=== PATIENT | female | born 1970 ===

== ENCOUNTER 2017-06-19 13:34 | Inpatient (IN) | payer OTHER ==
[~2017-06-19] VITALS: Ht 160 cm; Wt 100.8 kg
[2017-06-19 15:08] LABS: BASOPHILS # (AUTO) 0.04 x10^3/uL (0-0.1); BASOPHILS % (AUTO) 1 % (0-1); EOSINOPHILS # (AUTO) 0.33 x10^3/uL (0-0.4); EOSINOPHILS % (AUTO) 5 % (1-7); LYMPHOCYTES # (AUTO) 1.58 x10^3/uL (1-3.4); LYMPHOCYTES % (AUTO) 22 % (22-44); MD NO; MEAN CORPUSCULAR HEMOGLOBIN 31.1 pg (27.0-34.8); MEAN CORPUSCULAR HGB CONC 33.6 g/dL (32.4-35.8); MEAN CORPUSCULAR VOLUME 92.4 fL (80-100); MONOCYTES % (AUTO) 6 % (2-9); NEUTROPHILS # (AUTO) 4.94 x10^3/uL (1.8-6.8); NEUTROPHILS % (AUTO) 68 % (42-75); PLATELET COUNT 327 x10^3/uL (130-400); RED BLOOD COUNT 3.27 x10^6/uL (3.82-5.3); RED CELL DISTRIBUTION WIDTH 13.2 % (9.6-15.2)
[2017-06-19] MEDS ORDERED: ERGO2000 PO (15:11)
[2017-06-19] MEDS ORDERED: HYDR-3240 PO (15:11)
[2017-06-19] MEDS ORDERED: FOLI0.8T3 PO (15:11)
[2017-06-19] MEDS ORDERED: LOSA100T6 PO (15:11)
[2017-06-19] MEDS ORDERED: ZOLP-413 PO (15:11)
[2017-06-19 15:17] LABS: ALBUMIN 3.5 g/dL (3.4-5.0); ANION GAP 8 mmol/L (5-15); CALCIUM 9.1 mg/dL (8.5-10.1); CHLORIDE 113 mmol/L (98-107)
[2017-06-19 15:18] LABS: CREATININE 4.21 mg/dL (0.55-1.02)
[2017-06-19] MEDS ORDERED: SODIUM CHLORIDE FLUSH 10ML SYR IVF ONE (16:30)
[2017-06-19] MEDS ORDERED: BISACODYL 10 MG SUPP PR PRN (17:00)
[2017-06-19] MEDS ORDERED: POLYETHYLENE GLYCOL 17 GM PACKET PO PRN (17:00)
[2017-06-19] MEDS ORDERED: ACETAMINOPHEN 325 MG TABLET PO PRN (17:00)
[2017-06-19] MEDS ORDERED: hydrALAzine 20 MG/ML, 1ML IVPush PRN (17:00)
[2017-06-19] MEDS ORDERED: LABETALOL 5MG/ML, 20ML IVPush PRN (17:00)
[2017-06-19] MEDS ORDERED: DOCUSATE 100 MG CAPSULE PO PRN (17:00)
[2017-06-19] MEDS ORDERED: ONDANSETRON 2MG/ML, 2ML IVPush PRN (17:00)
[2017-06-19] MEDS ORDERED: HYDROcodone/APAP 5/325 TABLET PO PRN (17:30)
[2017-06-19 18:36] LABS: MICROSCOPIC AUTO
[2017-06-19 18:40] LABS: CULTURE INDICATED? YES
[2017-06-19 18:43] LABS: CREATININE,URINE RANDOM 93.7 mg/dL
[2017-06-19] MEDS: LOSARTAN 50MG TABLET PO SCH (20:19)
[2017-06-19] MEDS: FOLIC ACID 1 MG TABLET PO SCH (20:19)
[2017-06-19] MEDS: HEPARIN 5,000 UNITS/ML, 1ML SQ SCH (20:20)
[2017-06-19] MEDS: SODIUM CHLORIDE FLUSH 10ML SYR IVF SCH (20:20)
[2017-06-19] MEDS: CHOLECALCIFEROL 1,000 UNIT TABLET PO SCH (20:20)
[2017-06-19] MEDS: ZOLPIDEM 5MG TABLET PO PRN (20:20)
[2017-06-19 20:26] VITALS: BP 156/85
[2017-06-20 02:00] VITALS: BP 111/76
[2017-06-20] MEDS: HEPARIN 5,000 UNITS/ML, 1ML SQ SCH ×3 (05:00→21:01)
[2017-06-20 05:37] LABS: BASOPHILS # (AUTO) 0.04 x10^3/uL (0-0.1); BASOPHILS % (AUTO) 1 % (0-1); EOSINOPHILS # (AUTO) 0.42 x10^3/uL (0-0.4); EOSINOPHILS % (AUTO) 7 % (1-7); LYMPHOCYTES # (AUTO) 1.97 x10^3/uL (1-3.4); LYMPHOCYTES % (AUTO) 32 % (22-44); MD NO; MEAN CORPUSCULAR HEMOGLOBIN 31.9 pg (27.0-34.8); MEAN CORPUSCULAR HGB CONC 34.8 g/dL (32.4-35.8); MEAN CORPUSCULAR VOLUME 91.5 fL (80-100); MEAN PLATELET VOLUME 7.8 fL (7.4-10.4); MONOCYTES # (AUTO) 0.49 x10^3/uL (0.2-0.8); MONOCYTES % (AUTO) 8 % (2-9); NEUTROPHILS # (AUTO) 3.18 x10^3/uL (1.8-6.8); NEUTROPHILS % (AUTO) 52 % (42-75); PLATELET COUNT 277 x10^3/uL (130-400); RED BLOOD COUNT 2.89 x10^6/uL (3.82-5.3); RED CELL DISTRIBUTION WIDTH 13.1 % (9.6-15.2)
[2017-06-20 05:52] LABS: CALCIUM 8.4 mg/dL (8.5-10.1); CHLORIDE 113 mmol/L (98-107)
[2017-06-20 05:55] LABS: ANION GAP 10 mmol/L (5-15); CREATININE 4.15 mg/dL (0.55-1.02)
[2017-06-20 07:25] VITALS: BP 140/86
[2017-06-20] MEDS: SODIUM CHLORIDE FLUSH 10ML SYR IVF SCH ×2 (08:36→21:00)
[2017-06-20 14:21] VITALS: BP 137/80
[2017-06-20 20:30] VITALS: BP 144/87
[2017-06-20] MEDS: LOSARTAN 50MG TABLET PO SCH (21:01)
[2017-06-20] MEDS: FOLIC ACID 1 MG TABLET PO SCH (21:01)
[2017-06-20] MEDS: ZOLPIDEM 5MG TABLET PO PRN (21:01)
[2017-06-20] MEDS: CHOLECALCIFEROL 1,000 UNIT TABLET PO SCH (21:01)
[2017-06-21 03:15] VITALS: BP 104/66
[2017-06-21 05:02] LABS: BASOPHILS # (AUTO) 0.05 x10^3/uL (0-0.1); BASOPHILS % (AUTO) 1 % (0-1); EOSINOPHILS # (AUTO) 0.39 x10^3/uL (0-0.4); EOSINOPHILS % (AUTO) 5 % (1-7); LYMPHOCYTES # (AUTO) 2.02 x10^3/uL (1-3.4); LYMPHOCYTES % (AUTO) 28 % (22-44); MD NO; MEAN CORPUSCULAR HEMOGLOBIN 31.3 pg (27.0-34.8); MEAN CORPUSCULAR HGB CONC 34.1 g/dL (32.4-35.8); MEAN CORPUSCULAR VOLUME 91.8 fL (80-100); MEAN PLATELET VOLUME 7.9 fL (7.4-10.4); MONOCYTES # (AUTO) 0.42 x10^3/uL (0.2-0.8); MONOCYTES % (AUTO) 6 % (2-9); NEUTROPHILS # (AUTO) 4.27 x10^3/uL (1.8-6.8); NEUTROPHILS % (AUTO) 60 % (42-75); PLATELET COUNT 270 x10^3/uL (130-400); RED BLOOD COUNT 3.01 x10^6/uL (3.82-5.3); RED CELL DISTRIBUTION WIDTH 13.4 % (9.6-15.2)
[2017-06-21 05:27] LABS: ANION GAP 10 mmol/L (5-15); CALCIUM 8.5 mg/dL (8.5-10.1); CHLORIDE 109 mmol/L (98-107)
[2017-06-21 05:28] LABS: CREATININE 4.08 mg/dL (0.55-1.02)
[2017-06-21] MEDS: HEPARIN 5,000 UNITS/ML, 1ML SQ SCH (05:41)
[2017-06-21 06:52] VITALS: BP 95/59
[2017-06-21] MEDS: SODIUM CHLORIDE FLUSH 10ML SYR IVF SCH (08:21)
== END 2017-06-21 12:30 | disposition home or self-care (01) | DRG 683 ==
LOC: ED 16:27 → EDIP 16:28 → ED 16:52 → 4EST 18:39 → DCLOUNGE 06-21 12:24
PROVIDERS: ADMIT Internal Medicine; ATTEND Internal Medicine
DX: N17.0 Acute kidney failure with tubular necrosis (principal); E11.22 Type 2 diabetes mellitus with diabetic chronic kidney disease; E11.65 Type 2 diabetes mellitus with hyperglycemia; N25.0 Renal osteodystrophy; I13.10 Hypertensive heart and chronic kidney disease without heart failure, with stage 1 through stage 4 chronic kidney disease, or unspecified chronic kidney disease; D63.8 Anemia in other chronic diseases classified elsewhere; M54.9 Dorsalgia, unspecified; N18.4 Chronic kidney disease, stage 4 (severe); G89.29 Other chronic pain; Z79.84 Long term (current) use of oral hypoglycemic drugs; Q61.2 Polycystic kidney, adult type; Z82.49 Family history of ischemic heart disease and other diseases of the circulatory system; Z83.3 Family history of diabetes mellitus; Z90.49 Acquired absence of other specified parts of digestive tract; Z88.6 Allergy status to analgesic agent; Z88.8 Allergy status to other drugs, medicaments and biological substances
CPT/HCPCS: 36415; 71045; 76770; 80048; 81001; 82040; 82306; 82436; 82570; 82728; 83540; 83550; 83735; 83880; 83970; 84100; 84133; 84300; 84466; 85025; 87086; 99285; J1644

== ENCOUNTER 2018-07-13 10:34 | Day surgery (SDC) | payer OTHER ==
[~2018-07-13] VITALS: Ht 158.8 cm; Wt 97.1 kg
[~2018-07-13 10:34] MED LIST: BUPIVACAINE/PF-EPI 0.5% 1:200K ONE; ERGO2000 PO; FOLI0.8T3 PO; HEPARIN 1,000 UNITS/ML, 10ML ONE; HYDR-3240 PO; LOSA100T14 PO; THROMBIN 5,000 UNIT VIAL TP ONE; ZOLP-413 PO
[2018-07-13] MEDS ORDERED: SODIUM CHLORIDE 0.9% 1,000 ML IV SCH (11:02)
[2018-07-13 11:29] LABS: HCG UR SG 1.011 (1.003-1.030)
[2018-07-13 11:54] VITALS: BP 124/84
[2018-07-13] MEDS ORDERED: MIDAZOLAM 1 MG/ML, 2ML ONE (11:54)
[2018-07-13] MEDS ORDERED: FENTANYL PF 100 MCG/2ML ONE ×2 (11:54→13:35)
[2018-07-13] MEDS ORDERED: SODI650T PO (11:54)
[2018-07-13] MEDS ORDERED: ONDANSETRON 2MG/ML, 2ML IV PRN (12:00)
[2018-07-13] MEDS ORDERED: MIDAZOLAM 1 MG/ML, 2ML IV PRN (12:00)
[2018-07-13] MEDS ORDERED: hydrALAzine 20 MG/ML, 1ML IV PRN (12:00)
[2018-07-13] MEDS ORDERED: ALBUTEROL/IPRATROPIUM 2.5MG/0.5MG, 3 ML NPPB PRN (12:00)
[2018-07-13] MEDS ORDERED: SCOPOLAMINE PATCH, 1.5MG PATCH.TD72 TD PRN (12:00)
[2018-07-13] MEDS ORDERED: HYDROmorphone 2 MG/ML, 1ML IVPush PRN (12:00)
[2018-07-13] MEDS ORDERED: OXYcodone 5 MG/5 ML ORAL.SOL UDC PO PRN (12:00)
[2018-07-13] MEDS ORDERED: PROMETHAZINE 25 MG/ML, 1ML IV PRN (12:00)
[2018-07-13] MEDS ORDERED: MEPERIDINE/PF 25MG/0.5ML IVPush PRN (12:00)
[2018-07-13] MEDS ORDERED: ACETAMINOPHEN 325 MG TABLET PO PRN (12:00)
[2018-07-13] MEDS ORDERED: CEFAZOLIN 1,000 MG ONE (12:16)
[2018-07-13] MEDS ORDERED: ROCURONIUM 10 MG/ML,10ML ONE (12:16)
[2018-07-13] MEDS ORDERED: PROPOFOL 10 MG/ML, 20ML ONE (12:16)
[2018-07-13] MEDS ORDERED: PHENYLEPHRINE 10 MG/ML ONE (12:16)
[2018-07-13] MEDS ORDERED: SUGAMMADEX 200 MG/2 ML IVPush ONE (12:16)
[2018-07-13] MEDS ORDERED: SUCCINYLCHOLINE 20 MG/ML, 10ML ONE (12:16)
[2018-07-13] MEDS ORDERED: DEXAMETHASONE 4 MG/ML, 5ML ONE (12:16)
[2018-07-13] MEDS ORDERED: ONDANSETRON 2MG/ML, 2ML ONE (12:16)
[2018-07-13] MEDS ORDERED: OXYcodone 5 MG/5 ML ORAL.SOL UDC ONE (13:18)
[2018-07-13] MEDS: FENTANYL PF 100 MCG/2ML IV PRN ×3 (13:35→13:50)
== END 2018-07-13 16:50 | disposition home or self-care (01) ==
LOC: OUT 10:34
PROVIDERS: ATTEND Surgery Vascular Surgery
DX: I12.0 Hypertensive chronic kidney disease with stage 5 chronic kidney disease or end stage renal disease (principal); E11.22 Type 2 diabetes mellitus with diabetic chronic kidney disease; N18.6 End stage renal disease; E66.9 Obesity, unspecified; Z68.38 Body mass index [BMI] 38.0-38.9, adult; Z79.4 Long term (current) use of insulin; Z88.8 Allergy status to other drugs, medicaments and biological substances
CPT/HCPCS: 36415; 36821; 49324; 80047; 81025; C1750; J0330; J0690; J1100; J1644; J2250; J2370; J2405; J2704; J3010; J7030

== ENCOUNTER 2021-02-12 08:22 | Day surgery (SDC) | payer MEDICARE, OTHER ==
[~2021-02-12] VITALS: Ht 157.5 cm; Wt 82.4 kg
[~2021-02-12 08:22] MED LIST changes: -BUPIVACAINE/PF-EPI 0.5% 1:200K ONE; +CALC0.25 PO; -HEPARIN 1,000 UNITS/ML, 10ML ONE; +HYDR-2214 PO; -HYDR-3240 PO; +MIDO5TAB9 PO; +PANT40TA6 PO; +ROPI1TAB4 PO; +SEVE800T8 PO; +SODI650T PO; -THROMBIN 5,000 UNIT VIAL TP ONE; +VANC1PLA9 IV
[2021-02-12] MEDS ORDERED: CHLORHEXIDINE 15 ML UDC PO ONE (10:00)
[2021-02-12] MEDS ORDERED: SODIUM CHLORIDE 0.9% 1,000 ML IV SCH (10:00)
[2021-02-12 10:02] VITALS: BP 115/82
[2021-02-12] MEDS ORDERED: ZOLP10TA PO (10:12)
[2021-02-12] MEDS ORDERED: ROPI2TAB8 PO (10:12)
[2021-02-12 11:18] LABS: ALANINE AMINOTRANSFERASE 21 U/L (12-78); ALBUMIN 3.2 g/dL (3.4-5.0); ANION GAP 11 mmol/L (5-15); CALCIUM 10.3 mg/dL (8.5-10.1); CHLORIDE 100 mmol/L (98-107)
[2021-02-12 11:20] LABS: ALKALINE PHOSPHATASE 69 U/L (45-117); BILIRUBIN,TOTAL 0.4 mg/dL (0.2-1.0); CREATININE 8.93 mg/dL (0.55-1.02); TOTAL PROTEIN 7.7 g/dL (6.4-8.2)
[2021-02-12] MEDS ORDERED: BUPIVACAINE/PF 0.5% ONE (12:44)
[2021-02-12] MEDS ORDERED: EPINEPHRINE 1 MG/ML, 1ML ONE (12:45)
[2021-02-12] MEDS ORDERED: FENTANYL PF 100 MCG/2ML ONE ×3 (12:55→14:28)
[2021-02-12] MEDS ORDERED: MIDAZOLAM 1 MG/ML, 2ML ONE (12:55)
[2021-02-12] MEDS ORDERED: DEXAMETHASONE 4 MG/ML, 1ML ONE (13:03)
[2021-02-12] MEDS ORDERED: SUGAMMADEX 200 MG/2 ML IVPush ONE (13:03)
[2021-02-12] MEDS ORDERED: GLYCOPYRROLATE 0.2MG/1ML, 5ML ONE (13:53)
[2021-02-12] MEDS ORDERED: SUCCINYLCHOLINE 20 MG/ML, 10ML ONE (13:53)
[2021-02-12] MEDS ORDERED: CEFAZOLIN 1,000 MG ONE (13:53)
[2021-02-12] MEDS ORDERED: PROPOFOL 10 MG/ML, 20ML ONE (13:53)
[2021-02-12] MEDS ORDERED: ONDANSETRON 2MG/ML, 2ML ONE (13:53)
[2021-02-12] MEDS ORDERED: NEOSTIGMINE 1 MG/ML, 10ML ONE (13:53)
[2021-02-12] MEDS ORDERED: ROCURONIUM 10MG/ML,5ML ONE (13:53)
[2021-02-12] MEDS ORDERED: OXYcodone 5 MG/5 ML ORAL.SOL UDC PO PRN (14:00)
[2021-02-12] MEDS ORDERED: FENTANYL PF 100 MCG/2ML IV PRN (14:00)
[2021-02-12] MEDS ORDERED: ACETAMINOPHEN 325 MG TABLET PO PRN (14:00)
[2021-02-12] MEDS ORDERED: PROMETHAZINE 25 MG/ML, 1ML IV PRN (14:00)
[2021-02-12] MEDS ORDERED: LABETALOL 5MG/ML, 20ML IV PRN (14:00)
[2021-02-12] MEDS ORDERED: HYDROmorphone 2 MG/ML, 1ML IVPush PRN (14:00)
[2021-02-12] MEDS ORDERED: hydrALAzine 20 MG/ML, 1ML IV PRN (14:00)
[2021-02-12] MEDS ORDERED: DIAZEPAM 5 MG/ML, 2ML IVPush PRN (14:00)
[2021-02-12] MEDS ORDERED: ALBUTEROL SULFATE 2.5 MG/3 ML NPPB PRN (14:00)
[2021-02-12] MEDS ORDERED: MEPERIDINE/PF 25MG/0.5ML IVPush PRN (14:00)
[2021-02-12] MEDS ORDERED: ACETAMINOPHEN 650 MG/20.3 ML UDC ONE (14:20)
[2021-02-12] MEDS ORDERED: DOCU-131 PO (14:20)
[2021-02-12] MEDS ORDERED: HYDR-2214 PO (14:20)
[2021-02-12] MEDS ORDERED: OXYcodone 5 MG/5 ML ORAL.SOL UDC ONE (14:27)
[2021-02-12] MEDS ORDERED: DIPHENHYDRAMINE 50 MG/ML, 1ML ONE (14:45)
[2021-02-12] MEDS ORDERED: DIPHENHYDRAMINE 50 MG/ML, 1ML IVPush PRN (15:00)
== END 2021-02-12 16:05 | disposition home or self-care (01) ==
LOC: OUT 08:22
PROVIDERS: ATTEND Surgery Vascular Surgery
DX: E11.22 Type 2 diabetes mellitus with diabetic chronic kidney disease (principal); I12.0 Hypertensive chronic kidney disease with stage 5 chronic kidney disease or end stage renal disease; N18.6 End stage renal disease; K42.9 Umbilical hernia without obstruction or gangrene; E66.9 Obesity, unspecified; Z68.32 Body mass index [BMI] 32.0-32.9, adult; Z79.899 Other long term (current) drug therapy; Z88.8 Allergy status to other drugs, medicaments and biological substances; Z90.49 Acquired absence of other specified parts of digestive tract; Z99.2 Dependence on renal dialysis; Z98.890 Other specified postprocedural states; Z83.3 Family history of diabetes mellitus; Z82.49 Family history of ischemic heart disease and other diseases of the circulatory system
CPT/HCPCS: 36415; 49324; 80053; 93005; C1750; C1769; J0171; J0330; J0690; J1100; J1200; J2250; J2405; J2704; J2710; J3010; J7030